=== PATIENT | female | born 2000 | race Caucasian/White ===

== ENCOUNTER 2020-09-17 22:27 | Emergency (ER) | payer BC, OTHER ==
[~2020-09-17] VITALS: Ht 175.2 cm; Wt 63.5 kg
--- NOTE | 2020-09-17 23:44 | ED Abdominal Pain ---
General Chief Complaint: Abdominal/GI Problems Stated Complaint: LOWER ABD PAIN Nursing Triage Note: UMBILICUS PAIN FOR LAST 2 DAYS AFTER SHE EATS. FEELS THOUGH IF SHE COULD CVOMIT SHE MAY FEEL BETTER. Sepsis Screen: No Definite Risk Source of Information: Patient Exam Limitations: No Limitations History of Present Illness Date Seen by Provider: September 17, 2020 Time Seen by Provider: 23:12 Initial Comments This is a well-appearing 19-year-old female presents to the ER with complaints of umbilical pain started 2 days ago. States pain has progressively worsened to where she has generalized lower abdominal pain. States that it feels like if she vomited it would make her feel better. Pain is worse immediately after eating and resides within a couple hours of meal. No fever, chills, cough, short ness of breath, nausea/vomiting/diarrhea. Allergies and Home Medications Allergies Coded Allergies: No Known Drug Allergies (Unverified , 09/18/20) Home Medications Famotidine 20 Mg Tablet, 20 MG PO BID Prescribed by: JAEL RICE on 09/18/20 0058 Patient Home Medication List Home Medication List Reviewed: Yes Review of Systems Review of Systems Constitutional: see HPI EENTM: No Symptoms Reported Respiratory: No Symptoms Reported Cardiovascular: No Symptoms Reported Gastrointestinal: See HPI Genitourinary: No Symptoms Reported Musculoskeletal: no symptoms reported Skin: no symptoms reported Psychiatric/Neurological: No Symptoms Reported Endocrine: No Symptoms Reported Hematologic/Lymphatic: No Symptoms Reported Past Kfsmapj-Cvgrrj-Fvbter Hx Patient Social History Recent Infectious Disease Expo: No Past Medical History : No Physical Exam Vital Signs Vital Signs - First Documented 09/17/20 23:10 Temp 36.9 Pulse 62 Resp 14 B/P (MAP) 121/80 (94) Pulse Ox 99 Capillary Refill : Less Than 3 Seconds Height/Weight/BMI Height: '" Weight: lbs. oz. kg; 20.00 BMI Method: General Appearance: WD/WN, no apparent distress HEENT: PERRL/EOMI, normal ENT inspection Neck: full range of motion, normal inspection Respiratory: lungs clear, normal breath sounds Cardiovascular: regular rate, rhythm, no murmur Gastrointestinal: normal bowel sounds, soft; No distended; guarding, rebound, tenderness (generalized umbilical pain ) Extremities: normal range of motion, normal inspection Neurologic/Psychiatric: no motor/sensory deficits, alert, normal mood/affect, oriented x 3 Skin: normal color, warm/dry Progress/Results/Core Measures Results/Orders Lab Results Laboratory Tests Test 09/17/20 23:10 09/17/20 23:56 Range/Units Urine Color YELLOW Urine Clarity CLEAR Urine pH 7.0 5-9 Urine Specific [place] 1.010 L 1.016-1.022 Urine Protein NEGATIVE NEGATIVE Urine Glucose (UA) NEGATIVE NEGATIVE Urine Ketones NEGATIVE NEGATIVE Urine Nitrite NEGATIVE NEGATIVE Urine Bilirubin NEGATIVE NEGATIVE Urine Urobilinogen 0.2 < = 1.0 MG/DL Urine Leukocyte Esterase TRACE H NEGATIVE Urine RBC (Auto) NEGATIVE NEGATIVE Urine RBC NONE /HPF Urine WBC 2-5 /HPF Urine Squamous Epithelial Cells 2-5 /HPF Urine Crystals NONE /LPF Urine Bacteria TRACE /HPF Urine Casts NONE /LPF Urine Mucus NEGATIVE /LPF Urine Culture Indicated NO White Blood Count 5.4 4.3-11.0 10^3/uL Red Blood Count 4.77 3.80-5.11 10^6/uL Hemoglobin 13.6 11.5-16.0 g/dL Hematocrit 41 35-52 % Mean Corpuscular Volume 87 80-99 fL Mean Corpuscular Hemoglobin 29 25-34 pg Mean Corpuscular Hemoglobin Concent 33 32-36 g/dL Red Cell Distribution Width 12.7 10.0-14.5 % Platelet Count 307 130-400 10^3/uL Mean Platelet Volume 9.7 9.0-12.2 fL Immature Granulocyte % (Auto) 0 % Neutrophils (%) (Auto) 45 42-75 % Lymphocytes (%) (Auto) 43 12-44 % Monocytes (%) (Auto) 8 0-12 % Eosinophils (%) (Auto) 3 0-10 % Basophils (%) (Auto) 1 0-10 % Neutrophils # (Auto) 2.4 1.8-7.8 10^3/uL Lymphocytes # (Auto) 2.3 1.0-4.0 10^3/uL Monocytes # (Auto) 0.4 0.0-1.0 10^3/uL Eosinophils # (Auto) 0.2 0.0-0.3 10^3/uL Basophils # (Auto) 0.0 0.0-0.1 10^3/uL Immature Granulocyte # (Auto) 0.0 0.0-0.1 10^3/uL Sodium Level 139 135-145 MMOL/L Potassium Level 3.9 3.6-5.0 MMOL/L Chloride Level 104 98-107 MMOL/L Carbon Dioxide Level 24 21-32 MMOL/L Anion Gap 11 5-14 MMOL/L Blood Urea Nitrogen 9 7-18 MG/DL Creatinine 0.83 0.60-1.30 MG/DL Estimat Glomerular Filtration Rate > 60 BUN/Creatinine Ratio 11 Glucose Level 85 70-105 MG/DL Calcium Level 9.1 8.5-10.1 MG/DL Corrected Calcium 9.0 8.5-10.1 MG/DL Total Bilirubin 0.3 0.1-1.0 MG/DL Aspartate Amino Transf (AST/SGOT) 274 H 5-34 U/L Alanine Aminotransferase (ALT/SGPT) 104 H 0-55 U/L Alkaline Phosphatase 39 L 40-136 U/L Total Protein 7.2 6.4-8.2 GM/DL Albumin 4.1 3.2-4.5 GM/DL My Orders Orders - JAEL RICE INCIDENT RESPONSE LEAD Ua Culture If Indicated (09/17/20 23:12) Urine Bedside (09/17/20 23:12) Cbc With Automated Diff (09/17/20 23:35) Comprehensive Metabolic Panel (09/17/20 23:35) Ed Iv/Invasive Line Start (09/17/20 23:35) Ct Abd/Pelv W (Appendicitis) (09/18/20 00:01) Iohexol Injection (Omnipaque 350 Mg/Ml 1 (09/18/20 00:00) Received Contrast (Hold Metformin- Contr (09/18/20 00:00) Ns (Ivpb) (Sodium Chloride 0.9% Ivpb Bag (09/18/20 00:00) Medications Given in ED Vital Signs/I&O 09/17/20 09/18/20 23:10 01:05 Temp 36.9 Pulse 62 63 Resp 14 16 B/P (MAP) 121/80 (94) 114/72 (94) Pulse Ox 99 98 Blood Pressure Mean: 94 Progress Progress Note : Progress Note Patient examined and in no acute distress. Reports pain is tolerable at this time. Actually has a positive rebound. Will obtain basic labs, bedside and order CT abdomen pelvis with contrast to evaluate for appendicitis. Based on symptoms gastritis is also in the differential. Labs reviewed unremarkable other than elevation in LFTs. STAT Rad report of CT abd/pelvis showed no acute findings, see scanned report. Discussed trying Pepcid twice a day and to follow-up with her primary care provider next week. Reviewed discharge plan of care with patient and dad and they are agreeable with plan. Diagnostic Imaging Diagonstic Imaging: CT Plain Films/CT/US/NM/MRI: abdomen, pelvis Comments NAME: [facility] REC#: [id number] PT STATUS: DEP ER : [id number] PHYSICIAN: JAEL RICE INCIDENT RESPONSE LEAD ADMIT DATE: 09/17/20/ER Signed Date of Exam:09/18/20 CT ABD/PELV W (APPENDICITIS) PROCEDURE: CT abdomen and pelvis with contrast, rule out appendicitis. TECHNIQUE: Multiple contiguous axial images were obtained through the abdomen and pelvis after the administration of intravenous contrast. All CT scans use one or more of the following dose optimizing techniques: automated exposure control, MA and/or KvP adjustment based on patient size and exam type or iterative reconstruction. INDICATION: Periumbilical pain, postprandial. Compared with study 08/14/2010. FINDINGS: There is a paucity of mesenteric and retroperitoneal fat as well as a mildly elevated colonic fecal load. The cecum is low in position in the pelvis. These factors likely account for the inability to clearly identify the patient's appendix at this study. There is no right lower quadrant or pericecal inflammation to suggest underlying appendicitis. No bowel wall thickening. No regional inflammatory change. No ascites or abscess. Liver, spleen, adrenals, pancreas, contracted gallbladder and bile ducts normal. There is no hydroureteronephrosis, urinary bladder unremarkable. No adnexal lesion. The bony structures and lung bases nonacute. IMPRESSION: 1. No inflammatory process, obstructive features or fluid collections. Mild elevated fecal load. 2. No convincing visualization of the appendix likely owing to factors above. No specific findings to suggest appendicitis. Dictated by: Dictated on workstation # [id number] Dict: 09/18/20 0709 Trans: 09/18/20 1037 CVB [id number] Interpreted by: MARY GUZMAN Electronically signed by: MARY GUZMAN 09/18/20 1037 Departure Impression Primary Impression: Gastritis Disposition: 01 HOME, SELF-CARE Condition: Improved Departure-Patient Inst. Decision time for Depature: 00:56 Referrals: NO,LOCAL PHYSICIAN (PCP/Family) Primary Care Physician Patient Instructions: Gastritis Add. Discharge Instructions: Plan: 1. Take pepcid twice a day for two weeks. 2. Avoid aggravating foods. 3. Follow up with your primary care provider for persistent problems. 4. Return for any new or worsening symptoms. All discharge instructions reviewed with patient and/or family. Voiced understanding. Scripts Famotidine (Pepcid) 20 Mg Tablet 20 MG PO BID for 14 Days, #28 TAB 0 Refills Prov: JAEL RICE INCIDENT RESPONSE LEAD 09/18/20 JAEL RICE INCIDENT RESPONSE LEAD September 17, 2020 23:44
[2020-09-17 23:48] LABS: BILIRUBIN,URINE NEGATIVE (NEGATIVE); CLARITY,URINE CLEAR; COLOR,URINE YELLOW; GLUCOSE, URINE (UA) NEGATIVE (NEGATIVE); KETONES,URINE NEGATIVE (NEGATIVE); LEUKOCYTE ESTERASE ,URINE TRACE (NEGATIVE); NITRITE,URINE NEGATIVE (NEGATIVE); PROTEIN,URINE NEGATIVE (NEGATIVE)
[2020-09-18] MEDS ORDERED: IOHEXOL 350 MG/ML 100 ML (OMNIPAQUE 350) VIAL IV ONE
[2020-09-18] MEDS ORDERED: HOLD METFORMIN - RECEIVED CONTRAST 20 ML VIAL IV SCH
[2020-09-18] MEDS ORDERED: NS 100 ML (IVPB) BAG IV ONE
[2020-09-18 00:03] LABS: BACTERIA,URINE TRACE /HPF
[2020-09-18 00:13] LABS: BASOPHILS % (AUTO) 1 % (0-10); EOSINOPHILS # (AUTO) 0.2 10^3/uL (0.0-0.3); EOSINOPHILS % (AUTO) 3 % (0-10); HEMATOCRIT 41 % (35-52); HEMOGLOBIN 13.6 g/dL (11.5-16.0); LYMPHOCYTES # (AUTO) 2.3 10^3/uL (1.0-4.0); LYMPHOCYTES % (AUTO) 43 % (12-44); MEAN CORPUSCULAR HEMOGLOBIN 29 pg (25-34); MEAN CORPUSCULAR HGB CONC 33 g/dL (32-36); MEAN CORPUSCULAR VOLUME 87 fL (80-99); MEAN PLATELET VOLUME 9.7 fL (9.0-12.2); MONOCYTES # (AUTO) 0.4 10^3/uL (0.0-1.0); MONOCYTES % (AUTO) 8 % (0-12); NEUTROPHILS # (AUTO) 2.4 10^3/uL (1.8-7.8); NEUTROPHILS % (AUTO) 45 % (42-75); PLATELET COUNT 307 10^3/uL (130-400); WHITE BLOOD COUNT 5.4 10^3/uL (4.3-11.0)
[2020-09-18 00:21] LABS: ALBUMIN 4.1 GM/DL (3.2-4.5); CHLORIDE 104 MMOL/L (98-107); POTASSIUM 3.9 MMOL/L (3.6-5.0); SODIUM 139 MMOL/L (135-145)
[2020-09-18 00:23] LABS: CALCIUM 9.1 MG/DL (8.5-10.1)
[2020-09-18 00:24] LABS: GLUCOSE 85 MG/DL (70-105); TOTAL PROTEIN 7.2 GM/DL (6.4-8.2)
[2020-09-18 00:25] LABS: CARBON DIOXIDE 24 MMOL/L (21-32)
[2020-09-18 00:26] LABS: BILIRUBIN,TOTAL 0.3 MG/DL (0.1-1.0)
[2020-09-18 00:27] LABS: ALKALINE PHOSPHATASE 39 U/L (40-136); CREATININE SERUM 0.83 MG/DL (0.60-1.30); GFR ESTIMATED > 60
[2020-09-18 00:28] LABS: BUN/CREATININE RATIO 11
[2020-09-18 00:30] LABS: ALANINE AMINOTRANSFERASE 104 U/L (0-55)
[2020-09-18] MEDS ORDERED: FAMO-119 PO (00:58)
[2020-09-18 01:05] VITALS: BP 114/72
--- NOTE | 2020-09-18 07:24 | Diagnostic Imaging Report ---
PROCEDURE: CT abdomen and pelvis with contrast, rule out appendicitis. TECHNIQUE: Multiple contiguous axial images were obtained through the abdomen and pelvis after the administration of intravenous contrast. All CT scans use one or more of the following dose optimizing techniques: automated exposure control, MA and/or KvP adjustment based on patient size and exam type or iterative reconstruction. INDICATION: Periumbilical pain, postprandial. Compared with study 08/14/2010. FINDINGS: There is a paucity of mesenteric and retroperitoneal fat as well as a mildly elevated colonic fecal load. The cecum is low in position in the pelvis. These factors likely account for the inability to clearly identify the patient's appendix at this study. There is no right lower quadrant or pericecal inflammation to suggest underlying appendicitis. No bowel wall thickening. No regional inflammatory change. No ascites or abscess. Liver, spleen, adrenals, pancreas, contracted gallbladder and bile ducts normal. There is no hydroureteronephrosis, urinary bladder unremarkable. No adnexal lesion. The bony structures and lung bases nonacute. IMPRESSION: 1. No inflammatory process, obstructive features or fluid collections. Mild elevated fecal load. 2. No convincing visualization of the appendix likely owing to factors above. No specific findings to suggest appendicitis. Dictated by: Dictated on workstation # [id number]
== END 2020-09-18 01:05 | disposition home or self-care (01) ==
LOC: ER 22:31
DX: K29.70 Gastritis, unspecified, without bleeding (principal)
CPT/HCPCS: 36415; 74177; 80053; 81000; 84703; 85025